=== PATIENT | female | born 1990 | race Two or more races ===

== ENCOUNTER 2020-08-06 06:55 | Inpatient (IN) ==
[2020-08-06] MEDS ORDERED: PITOCIN ONE (07:03)
[2020-08-06] MEDS ORDERED: D5 1/2 NS 1000 ML 1,000 ML IV ONE (07:03)
[2020-08-06] MEDS ORDERED: D5LR 1L W PITOCIN 10 UNITS/L 10 UNITS/1,000 ML BAG IV ONE ×2 (07:04→17:36)
[2020-08-06] MEDS ORDERED: D5 1/2 NS 1L W PITOCIN 20 UNITS/L 20 UNITS/1,000 ML BAG IV ONE (07:04)
[2020-08-06] MEDS: D5 1/2 NS 1000 ML 1,000 ML IV SCH ×2 (07:30→22:34)
[2020-08-06] MEDS ORDERED: MORPHINE SULFATE INJ 2 MG INJ IVP PRN (07:41)
[2020-08-06] MEDS ORDERED: PITOCIN IVP ONE (07:41)
[2020-08-06] MEDS ORDERED: D5LR 1L W PITOCIN 10 UNITS/L 10 UNITS/1,000 ML BAG IV PRN (07:41)
[2020-08-06] MEDS ORDERED: REGLAN INJ 10 MG VIAL IVP PRN ×3 (07:41→23:06)
[2020-08-06] MEDS ORDERED: PHENERGAN INJ 25 MG IM PRN ×2 (07:41→23:04)
[2020-08-06 08:08] LABS: BASOPHILS % (AUTO) 0.4 % (0.2-1.0); EOSINOPHILS # (AUTO) 0.1 x10^3/uL (0.0-0.2); EOSINOPHILS % (AUTO) 0.9 % (0.9-2.9); HEMATOCRIT 35.1 % (36.0-47.0); HEMOGLOBIN 11.6 g/dL (12.0-16.0); LYMPHOCYTES # (AUTO) 1.9 X10^3/uL (1.3-2.9); LYMPHOCYTES % (AUTO) 22.2 % (21.0-51.0); MEAN CORPUSCULAR HEMOGLOBIN 28.6 pg (27.0-34.0); MEAN CORPUSCULAR HGB CONC 33.1 g/dL (33.0-35.0); MEAN CORPUSCULAR VOLUME 86.4 fL (80.0-100.0); MEAN PLATELET VOLUME 8.3 fL (7.4-11.0); MONOCYTES # (AUTO) 0.8 x10^3/uL (0.3-0.8); MONOCYTES % (AUTO) 8.9 % (0.0-13.0); NEUTROPHILS # (AUTO) 5.9 x10^3/uL (2.2-4.8); NEUTROPHILS % (AUTO) 67.6 % (42.0-75.0); PLATELET COUNT 212 X10^3/uL (150.0-450.0); RED BLOOD COUNT 4.06 X10^6/uL (3.5-5.4); RED CELL DISTRIBUTION WIDTH 13.4 % (11.6-16.5); WHITE BLOOD COUNT 8.7 X10^3/uL (3.6-10.0)
[2020-08-06 08:09] LABS: BILIRUBIN,URINE NEGATIVE (NEGATIVE); BLOOD/HEMOGLOBIN,URINE NEGATIVE (NEGATIVE); GLUCOSE, URINE NEGATIVE (NEGATIVE); KETONES,URINE NEGATIVE (NEGATIVE); LEUKOCYTE ESTERASE ,URINE 3+ (NEGATIVE); NITRITES,URINE NEGATIVE (NEGATIVE); PROTEIN,URINE 1+ (NEGATIVE); UROBILINOGEN,URINE NORMAL (NORMAL)
[2020-08-06 08:15] LABS: BLOOD UREA NITROGEN 11 mg/dL (7-18); CALCIUM 8.5 mg/dL (8.5-10.1); CARBON DIOXIDE 24.1 mmol/L (21-32); CHLORIDE 104 mmol/L (98-107); COR NA(FOR HYPERGLY) 139 mmol/L (136-145); CREATININE 0.48 mg/dL (0.55-1.02); SODIUM 138 mmol/L (136-145); eGFR NON BLACK RACES > 60 (>60)
[2020-08-06 08:21] LABS: COLOR,URINE YELLOW (YELLOW)
[2020-08-06 08:22] LABS: APPEARANCE,URINE SLIGHTLY HAZY (CLEAR)
[2020-08-06 08:23] LABS: AMORPHOUS SEDIMENT,UR TRACE /HPF (NEGATIVE); BACTERIA,URINE NEGATIVE /HPF (NEGATIVE); RBC,URINE 0-2 /HPF (0-3); SQUAMOUS EPITHELIAL CELL,UR MANY /HPF (NEGATIVE)
[2020-08-06] MEDS ORDERED: STADOL INJ ONE ×3 (14:26→21:23)
[2020-08-06] MEDS: STADOL INJ IVP PRN ×3 (14:29→21:23)
[2020-08-06] MEDS ORDERED: LR 1000 ML IV 1,000 ML IV ONE (21:45)
[2020-08-06] MEDS ORDERED: ANCEF 1 GRAM IV PREMIX* 2 G/100 ML BAG IV ONE (21:46)
[2020-08-06] MEDS ORDERED: DILAUDID INJ ONE (22:53)
[2020-08-06] MEDS ORDERED: DILAUDID INJ IVP PRN (23:04)
[2020-08-06] MEDS ORDERED: BENADRYL INJ 50 MG VIAL IVP PRN ×2 (23:04→23:06)
[2020-08-06] MEDS ORDERED: BARHEMSYS INJ IVP PRN (23:04)
[2020-08-06] MEDS ORDERED: ZOFRAN INJ 4 MG VIAL IVP PRN ×2 (23:04→23:06)
[2020-08-06] MEDS ORDERED: NARCAN INJ IVP PRN (23:06)
[2020-08-06] MEDS ORDERED: PERCOCET TAB 5/325 MG PO PRN (23:06)
[2020-08-07] MEDS ORDERED: MYLICON TAB 80 MG CHEW PO PRN (00:37)
[2020-08-07] MEDS ORDERED: D5 1/2 NS 1000 ML 1,000 ML with PITOCIN 20 UNITS IV SCH ×2 (01:00)
[2020-08-07] MEDS: MOTRIN TAB 800 MG PO PRN ×2 (03:02→18:00)
[2020-08-07 04:57] LABS: HEMATOCRIT 32.6 % (36.0-47.0)
[2020-08-07] MEDS: PRENATAL PLUS PO SCH (08:57)
[2020-08-07] MEDS ORDERED: PERCOCET TAB 5/325 MG PO PRN (09:24)
[2020-08-08] MEDS: MOTRIN TAB 800 MG PO PRN ×2 (05:07→17:21)
[2020-08-08] MEDS ORDERED: ADACEL or BOOSTRIX TDaP VACCINE IM ONE (10:33)
[2020-08-08] MEDS: PRENATAL PLUS PO SCH (10:57)
[2020-08-08 14:09] VITALS: BP 117/69
== END 2020-08-08 17:30 | disposition home or self-care (01) | DRG 788 ==
LOC: LD 06:55 → MED/SURG 08-07 00:13
PROVIDERS: ADMIT Obstetrics & Gynecology Obstetrics; ATTEND Obstetrics & Gynecology Obstetrics
DX: Z37.0 Single live birth; O26.893 Other specified pregnancy related conditions, third trimester; O65.8 Obstructed labor due to other maternal pelvic abnormalities; Z23 Encounter for immunization; Z3A.39 39 weeks gestation of pregnancy